=== PATIENT | female | born 1985 | race Caucasian/White ===

== ENCOUNTER 2021-09-03 13:52 | Emergency (ER) | payer SELFPAY ==
[2021-09-03 18:30] LABS: Bilirubin Neg (Negative); Blood, Urine 150 (Negative); Clarity Clear (Clear); Glucose, Urine (Dipstick) Normal (Negative); Ketone, Urine Negative (Negative); Leukocyte 500 (Negative); Nitrite Positive (Negative); Protein, Urine (Dipstick) 30 mg/dl (Neg-Trace); pH, Urine 6.5 (5.0-9.0)
[2021-09-03 18:40] LABS: Pregnancy Test - Urine (BHCG) Negative (Negative); Pregu Control Background? CLEAR/WHITE (CLR/WHITE); Pregu Control Bar Appear? YES (CONTROL BAR)
[2021-09-03 18:46] LABS: Bacteria/HPF 3+ HPF (None Seen); Mucous/LPF 2+ LPF (<2+); Trichomonas/HPF 1+ HPF (None Seen); WBC/HPF Greater than 50 HPF (0-3)
[2021-09-03] MEDS ORDERED: Acetaminophen 500 MG TAB ONE (18:46)
[2021-09-03] MEDS ORDERED: cefTRIAXone\\ROCEPHIN 1 GM VIAL ONE (18:46)
[2021-09-03] MEDS ORDERED: Ibuprofen 200 MG TAB ONE (18:48)
== END 2021-09-03 19:33 | disposition home or self-care (01) ==
LOC: EDSEX 13:52 → CSHERS 13:52
DX: N10 Acute pyelonephritis (principal); N39.0 Urinary tract infection, site not specified
CPT/HCPCS: 81003; 81015; 81025; 87077; 87086; 87186; 96372; 99284; J0696